=== PATIENT | male | born 1985 | race Two or more races ===

== ENCOUNTER 2016-08-06 21:35 | Emergency (ER) | payer MEDICAID ==
[2016-08-06] MEDS ORDERED: Sodium Chloride 0.9% 1,000 ML IV ONE (22:17)
--- NOTE | 2016-08-06 22:26 | ED Physician Chart ---
Chief Complaint/HPI - Patient Information Date Seen:: 08/06/16 Time Seen:: 21:50 Chief Complaint:: anxiety, tachcardia History of Present Illness:: Pt. states he's had anxiety for 40 minutes. He says he takes unspecified medications for this, but did not have any such med today, so he came to ER. Allergies:: Allergies Allergy/AdvReac Type Severity Reaction Status Date / Time No Known Allergies Allergy Verified 08/06/16 21:49 Vitals:: Vital Signs - 8 hr 08/06/16 21:40 Temp 98.3 F HR 117 RR 17 BP 165/91 O2 Sat % 98 Review of Systems - Review of Systems General/Constitutional: No fever Skin: No skin lesions Head: No headache ENT: No earache, No sore throat Neck: No neck pain Cardio Vascular: No chest pain Pulmonary: No SOB, No cough GI: No nausea, No vomiting, No diarrhea G/U: No dysuria Musculoskeletal: No bone or joint pain Psychiatric: Prior psych history (anxiety. Pt. has unspecified med for this.) Neurological: No syncope, No focal symptoms, No headache Past Medical History - Past Medical History Past Medical History: Other (anxiety. Pt. denies other medical problems.) Family History: None (No other congenital illness known.) Social History: Non Smoker, No Alcohol Surgical History: None Medication: None (Pt. states he takes some med for anxiety, does not know which. ) Family Medical History - Family Member Mother History Unknown: Yes Physical Exam - Physical Examination General/Constitutional: Awake, Well-developed, well-nourished, Alert, No distress, GCS 15, Non-toxic appearing, Ambulatory Head: Atraumatic Eyes: Lids, conjuctiva normal, PERRL, EOMI Skin: Nl inspection ENMT: External ears, nose nl Neck: Nontender, Full ROM w/o pain Respiratory: Nl effort/Exclusion, Clear to Auscultation Cardio Vascular: RRR, No murmur, gallop, rubs GI: No tenderness/rebounding/guarding : No CVA tenderness Extremities: Full ROM Neuro/Psych: Alert/oriented, Normal motor strength Labs/Radiology/EKG Results - Lab Results Results: EKG: sinus tach at 116. Nl axis and no acute ST change. CMP shows BUN/creat = 9/0.9. CPK elevated to 233. CK MB 3.1 with index 1.3. Ptl is feeling better. Heart rate 96. Trop. 0.01. CMP shows borderline K at 3.3. BUN/creat = 9/0.9 ED Septic Shock - . Is Septic Shock (SBP<90, OR Lactate>4 mmol\L) present?: No - <6hrs of presentation: Vital Signs: Vital Signs - 8 hr 08/06/16 21:40 Temp 98.3 F HR 117 RR 17 BP 165/91 O2 Sat % 98 Reassessment (Disposition) - Reassessment Reassessment Condition:: Improved - Diagnosis Diagnosis:: Acute episode of tachycardia and anxiety - Aftercare/Follow up Instructions Aftercare/Follow-Up Instructions:: Counseled pt regarding lab results/diagnosis & need follow up Medication Prescribed:: Rx: Ativan 1 mg. sig: one po tid prn anxiety. No driving. Disp. #12. No refill. - Patient Disposition Discharge/Transfer:: Home Condition at Disposition:: Improved ED Discharge Plan - Patient Disposition Admit/Discharge/Transfer: PT DISCHARGED HOME Condition at Disposition: Improved
[2016-08-06 22:45] LABS: % BASOPHILS 0.9 % (0.0-2.0); % EOSINOPHILS 0.9 % (0.0-5.0); % LYMPHOCYTES 22.1 % (20.0-50.0); % MONOCYTES 5.1 % (2.0-10.0); HEMATOCRIT 50.8 % (39.0-49.0); HEMOGLOBIN 17.4 gm/dL (13.2-17.3); MEAN CELL VOLUME 91.4 fl (80-99); MEAN CORPUSCULAR HEMOGLOBIN 31.3 pg (26.0-30.0); MEAN CORPUSCULAR HGB CONC 34.2 pg (28.0-36.0); MEAN PLATELET VOLUME 7.4 fl; NEUTROPHILE ABSOLUTE 5.9 Th/cmm (1.8-8.0); PLATELET COUNT 273 Th/cmm (150-400); RED BLOOD COUNT 5.55 Mil/cmm (4.30-5.70); RED CELL DISTRIBUTION WIDTH 12.1 % (11.5-20.0); WHITE BLOOD COUNT 8.3 Th/cmm (4.8-10.8)
[2016-08-06 23:09] LABS: ALB/GLOB RATIO 1.7 (1.0-1.8); ALKALINE PHOSPHATASE 63 U/L (34-104); BILIRUBIN,TOTAL 1.3 mg/dL (0.3-1.0); BUN - UREA NITROGEN 9 mg/dL (7-25); CALCIUM SERUM 10.4 mg/dL (8.6-10.3); CARBON DIOXIDE 24.3 mEq/L (21.0-31.0); CHLORIDE 101 mEq/L (98-107); CREATININE - SERUM 0.9 mg/dL (0.7-1.3); GLUCOSE 102 mg/dL (70-105); POTASSIUM SERUM 3.3 mEq/L (3.5-5.1); SGOT 20 U/L (13-39); SGPT/ALT 28 U/L (7-52); SODIUM SERUM 137 mEq/L (136-145)
[2016-08-06 23:26] LABS: CREATINE KINASE MB 3.1 ng/mL (0.6-6.3)
[2016-08-07 00:40] LABS: AMPHETAMINE URINE POSITIVE (NEGATIVE); BARBITURATES URINE NEGATIVE (NEGATIVE)
[2016-08-07 01:01] LABS: URINE BILIRUBIN NEGATIVE (NEGATIVE); URINE BLOOD NEGATIVE (NEGATIVE); URINE COLOR STRAW; URINE GLUCOSE (UA) NEGATIVE (NEGATIVE); URINE KETONE NEGATIVE (NEGATIVE); URINE PH 6.5; URINE PROTEIN NEGATIVE (NEGATIVE); URINE UROBILINOGEN 0.2 E.U./dL (0.2 - 1.0)
[2016-08-07 01:02] LABS: URINE BACTERIA NONE SEEN /hpf (NONE SEEN); URINE EPITHELIAL CELLS NONE SEEN /lpf (FEW); URINE RBC NONE SEEN /hpf (0-5); URINE WBC NONE SEEN /hpf (0-5)
== END 2016-08-07 00:40 | disposition home or self-care (01) ==
LOC: ER 21:35
DX: R00.0 Tachycardia, unspecified (principal); F41.9 Anxiety disorder, unspecified
CPT/HCPCS: 99285; 96361; 96374; 93005; 84484; 36415; 80300; 85025; 81001; 82550; 82553 ×2; 80053; J2060; 81003-TC; J7030